=== PATIENT | female | born 1940 | race Native Hawaiian/Other Pacific Islander ===

== ENCOUNTER 2017-07-21 09:39 | Outpatient (CLI) | payer OTHER, BC | END 2017-07-21 11:00 | disposition home or self-care (01) | LOC: MAMMO 09:39 | DX: Z12.31 Encounter for screening mammogram for malignant neoplasm of breast (principal) ==

== ENCOUNTER 2018-10-16 15:03 | Outpatient (CLI) | payer OTHER, BC | END 2018-10-16 20:49 | disposition home or self-care (01) | LOC: LAB 15:03 | DX: K59.1 Functional diarrhea (principal); R19.4 Change in bowel habit | CPT/HCPCS: 82272; 82705; 83630; 87015; 87045; 87324; 87328; 87329; 87449; 87899 ==

== ENCOUNTER 2019-03-28 13:30 | Outpatient (CLI) | payer OTHER, BC | END 2019-03-28 23:49 | disposition home or self-care (01) | LOC: RAD 13:30 | DX: M25.562 Pain in left knee (principal) ==

== ENCOUNTER 2019-04-08 09:50 | Outpatient (CLI) | payer OTHER, BC | END 2019-04-08 21:39 | disposition home or self-care (01) | LOC: LABW 09:50 | DX: K59.1 Functional diarrhea (principal) | CPT/HCPCS: 82705; 83630; 87015; 87045; 87324; 87328; 87329; 87449; 87899 ==

== ENCOUNTER 2019-08-01 08:32 | Outpatient (CLI) | payer OTHER | END 2019-08-01 19:50 | disposition home or self-care (01) | LOC: MAMMO 08:32 | DX: Z12.31 Encounter for screening mammogram for malignant neoplasm of breast (principal) ==

== ENCOUNTER 2020-08-11 09:17 | Outpatient (CLI) | payer OTHER, BC | END 2020-08-11 19:11 | disposition home or self-care (01) | LOC: MAMMO 09:17 → LABW 09:17 → MAMMO 09:30 | PROVIDERS: ATTEND Internal Medicine | DX: Z86.010 Personal history of colon polyps (principal); Z12.31 Encounter for screening mammogram for malignant neoplasm of breast | CPT/HCPCS: 82272 ==

== ENCOUNTER 2021-08-27 09:42 | Outpatient (CLI) | payer OTHER, BC | END 2021-08-27 18:58 | disposition home or self-care (01) | LOC: MAMMO 09:42 | PROVIDERS: ATTEND Internal Medicine | DX: Z12.31 Encounter for screening mammogram for malignant neoplasm of breast (principal) ==

== ENCOUNTER 2022-07-25 10:29 | Outpatient (CLI) | payer OTHER, BC | END 2022-07-25 19:39 | disposition home or self-care (01) | LOC: US 10:29 | PROVIDERS: ATTEND Internal Medicine | DX: R60.0 Localized edema (principal); M79.605 Pain in left leg ==

== ENCOUNTER 2022-08-29 09:10 | Outpatient (CLI) | payer OTHER, BC | END 2022-08-29 20:20 | disposition home or self-care (01) | LOC: MAMMO 09:10 | PROVIDERS: ATTEND Internal Medicine | DX: Z12.31 Encounter for screening mammogram for malignant neoplasm of breast (principal) ==